=== PATIENT | male | born 1980 | race Caucasian/White ===

== ENCOUNTER 2018-05-13 04:12 | Day surgery (SDC) | payer BC, OTHER ==
[~2018-05-13] VITALS: Ht 175.3 cm; Wt 72.8 kg
[2018-05-13] VITALS (10 sets, daily range): BP systolic 113–129; BP diastolic 74–85
[2018-05-13] MEDS ORDERED: ASPIRIN 81 MG CHEW (CHILDREN'S ASA) PO ONE (04:30)
[2018-05-13 04:34] LABS: BASOPHILS % (AUTO) 1 % (0-10); EOSINOPHILS # (AUTO) 0.1 10^3/uL (0.0-0.3); EOSINOPHILS % (AUTO) 2 % (0-10); HEMATOCRIT 45 % (40-54); HEMOGLOBIN 15.7 G/DL (13.3-17.7); LYMPHOCYTES # (AUTO) 2.4 X 10^3 (1.0-4.0); LYMPHOCYTES % (AUTO) 41 % (12-44); MEAN CORPUSCULAR HEMOGLOBIN 33 PG (25-34); MEAN CORPUSCULAR HGB CONC 35 G/DL (32-36); MEAN CORPUSCULAR VOLUME 93 FL (80-99); MEAN PLATELET VOLUME 9.6 FL (7.4-10.4); MONOCYTES # (AUTO) 0.4 X 10^3 (0.0-1.0); MONOCYTES % (AUTO) 7 % (0-12); NEUTROPHILS # (AUTO) 2.9 X 10^3 (1.8-7.8); NEUTROPHILS % (AUTO) 49 % (42-75); PLATELET COUNT 210 10^3/uL (130-400); RED BLOOD COUNT 4.82 10^6/uL (4.35-5.85); RED CELL DISTRIBUTION WIDTH 12.8 % (10.0-14.5); WHITE BLOOD COUNT 5.9 10^3/uL (4.3-11.0)
[2018-05-13] MEDS ORDERED: NITROGLYCERIN 0.4 MG SL TABS BTL 25'S SL ONE ×2 (04:39→04:45)
--- NOTE | 2018-05-13 04:43 | ED Chest Pain ---
General Chief Complaint: Chest Wall/Rib Pain Stated Complaint: CP,CONVULSING Nursing Triage Note: SUBSTERNAL CP X15MIN. NO KNOWN INJURY. AWOKE FROM SLEEP WITH PAIN. Nursing Sepsis Screen: No Definite Risk Source: patient Exam Limitations: no limitations History of Present Illness Date Seen by Provider: May 13, 2018 Time Seen by Provider: 04:25 Initial Comments PT ARRIVES VIA POV STATES "PAIN SHOULDERS, CHEST' STATES PAIN BEGAN 15 MINUTES PRIOR TO ARRIVAL, WOKE HIM FROM SLEEP. STATES HE FELT FINE WHEN HE WENT TO BED RATES PAIN 10/10 NOTHING WORSENS OR IMPROVES PAIN --TOOK IBUPROFEN PRIOR TO ARRIVAL, NO RELIEF. 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 PT STATES HE DOES NOT HAVE ANY MEDICAL PROBLEMS, BUT PER MED RECONCILIATION, PT HAS FILLED RX'S FOR HYDROCODONE" 03/30/18 FOR HYDROCODONE 7.5/325 #20 BY Bella HAYWARD 12/15/17 FOR HYDROCODONE 5/325 #18 BY Bella ZARAGOZA 12/11/17 FOR HYDROCODONE 5/325 #15 BY Justine RUVALCABA Allergies and Home Medications Allergies Coded Allergies: No Known Drug Allergies (Unverified , 05/13/18) Home Medications No Active Prescriptions or Reported Meds Patient Home Medication List Home Medication List Reviewed: Yes Review of Systems Constitutional: no symptoms reported EENTM: No Symptoms Reported Respiratory: No Symptoms Reported Cardiovascular: See HPI, Chest Pain; Denies Edema, Denies Irregular Heart Rate , Denies Lightheadedness, Denies Palpitations, Denies Syncope Gastrointestinal: No Symptoms Reported Genitourinary: No Symptoms Reported Musculoskeletal: see HPI, back pain Skin: no symptoms reported Psychiatric/Neurological: No Symptoms Reported Endocrine: No Symptoms Reported Hematologic/Lymphatic: No Symptoms Reported Past Yeyvczr-Mwwevk-Phguro Hx Patient Social History Alcohol Use: Occasionally Uses Alcohol Beverage of Choice: Beer Recreational Drug Use: Yes (THC, TRIED COCAINE--NO IV USE) Smoking Status: Former Smoker (2 PPD, QUIT 2011) Type Used: Cigarettes 2nd Hand Smoke Exposure: No Recent Foreign Travel: No Contact w/Someone Who Travel: No Recent Infectious Disease Expo: No Recent Hopitalizations: No Immunizations Up To Date Tetanus Booster (TDap): Unknown Seasonal Allergies Seasonal Allergies: No Past Medical History Surgeries: Yes (RIGHT INGUINAL HERNIA, DENTAL/WISDOM TEETH) Abdominal, Gallbladder Respiratory: No Cardiac: No Neurological: No Genitourinary: No Gastrointestinal: Yes (S/P KATHARINA) Gall Bladder Disease Musculoskeletal: No Endocrine: No HEENT: No Cancer: No Psychosocial: No Integumentary: No Blood Disorders: No Physical Exam Vital Signs Vital Signs - First Documented 05/13/18 04:15 Temp 97.9 Pulse 81 Resp 18 B/P (MAP) 144/103 (117) Pulse Ox 100 O2 Delivery Room Air Capillary Refill : Less Than 3 Seconds Height, Weight, BMI Height: 5'9.00" Weight: 155lbs. oz. 70.235072dj; BMI Method:Stated General Appearance: No Apparent Distress, Anxious (SHAKING ARMS AND LEGS/HOLDS WHOLE BODY VERY TENSE. KEEPS EYES SQUEEZED TIGHT.) HEENT: PERRL/EOMI Neck: Full Range of Motion, Normal Inspection, Non Tender, Supple; No Carotid Bruit, No JVD Respiratory: Chest Non Tender, Normal Breath Sounds, No Accessory Muscle Use, No Respiratory Distress Cardiovascular: Regular Rate, Rhythm, No Edema, No JVD, No Murmur, Normal Peripheral Pulses Gastrointestinal: Normal Bowel Sounds, No Organomegaly, No Pulsatile Mass, Non Tender, Soft Extremity: Normal Capillary Refill, Normal Inspection, Normal Range of Motion, Non Tender, No Calf Tenderness, No Pedal Edema Neurologic/Psychiatric: Alert, Oriented x3, No Motor/Sensory Deficits, county manager II- XII Norm as Tested Skin: Normal Color, Warm/Dry; No Rash Progress/Results/Core Measures Results/Orders Lab Results Laboratory Tests Test 05/13/18 04:25 05/13/18 05:15 Range/Units White Blood Count 5.9 4.3-11.0 10^3/uL Red Blood Count 4.82 4.35-5.85 10^6/uL Hemoglobin 15.7 13.3-17.7 G/DL Hematocrit 45 40-54 % Mean Corpuscular Volume 93 80-99 FL Mean Corpuscular Hemoglobin 33 25-34 PG Mean Corpuscular Hemoglobin Concent 35 32-36 G/DL Red Cell Distribution Width 12.8 10.0-14.5 % Platelet Count 210 130-400 10^3/uL Mean Platelet Volume 9.6 7.4-10.4 FL Neutrophils (%) (Auto) 49 42-75 % Lymphocytes (%) (Auto) 41 12-44 % Monocytes (%) (Auto) 7 0-12 % Eosinophils (%) (Auto) 2 0-10 % Basophils (%) (Auto) 1 0-10 % Neutrophils # (Auto) 2.9 1.8-7.8 X 10^3 Lymphocytes # (Auto) 2.4 1.0-4.0 X 10^3 Monocytes # (Auto) 0.4 0.0-1.0 X 10^3 Eosinophils # (Auto) 0.1 0.0-0.3 10^3/uL Basophils # (Auto) 0.0 0.0-0.1 10^3/uL Prothrombin Time 13.1 12.2-14.7 SEC INR Comment 1.0 0.8-1.4 Activated Partial Thromboplast Time 31 24-35 SEC Sodium Level 140 135-145 MMOL/L Potassium Level 3.9 3.6-5.0 MMOL/L Chloride Level 105 98-107 MMOL/L Carbon Dioxide Level 22 21-32 MMOL/L Anion Gap 13 5-14 MMOL/L Blood Urea Nitrogen 12 7-18 MG/DL Creatinine 1.01 0.60-1.30 MG/DL Estimat Glomerular Filtration Rate > 60 BUN/Creatinine Ratio 12 Glucose Level 100 70-105 MG/DL Calcium Level 9.3 8.5-10.1 MG/DL Magnesium Level 2.5 H 1.8-2.4 MG/DL Total Bilirubin 0.8 0.1-1.0 MG/DL Aspartate Amino Transf (AST/SGOT) 18 5-34 U/L Alanine Aminotransferase (ALT/SGPT) 18 0-55 U/L Alkaline Phosphatase 73 40-136 U/L Total Creatine Kinase 75 30-200 U/L Creatine Kinase MB 1.1 <6.6 NG/ML Myoglobin 34.8 10.0-92.0 NG/ML Troponin I < 0.30 <0.30 NG/ML B-Type Natriuretic Peptide 22.8 <100.0 PG/ML Total Protein 7.7 6.4-8.2 GM/DL Albumin 4.9 H 3.2-4.5 GM/DL Amylase Level 58 25-125 U/L Lipase 32 8-78 U/L Serum Alcohol < 10 <10 MG/DL Urine Color YELLOW Urine Clarity CLEAR Urine pH 6 5-9 Urine Specific [place] 1.010 L 1.016-1.022 Urine Protein NEGATIVE NEGATIVE Urine Glucose (UA) NEGATIVE NEGATIVE Urine Ketones NEGATIVE NEGATIVE Urine Nitrite NEGATIVE NEGATIVE Urine Bilirubin NEGATIVE NEGATIVE Urine Urobilinogen NORMAL NORMAL MG/DL Urine Leukocyte Esterase NEGATIVE NEGATIVE Urine RBC (Auto) NEGATIVE NEGATIVE Urine RBC 0 /HPF Urine WBC 0 /HPF Urine Squamous Epithelial Cells 0-2 /HPF Urine Crystals NONE /LPF Urine Bacteria 0 /HPF Urine Casts NONE /LPF Urine Mucus NEGATIVE /LPF Urine Culture Indicated NO Urine Opiates Screen NEGATIVE NEGATIVE Urine Oxycodone Screen NEGATIVE NEGATIVE Urine Methadone Screen NEGATIVE NEGATIVE Urine Propoxyphene Screen NEGATIVE NEGATIVE Urine Barbiturates Screen NEGATIVE NEGATIVE Ur Tricyclic Antidepressants Screen NEGATIVE NEGATIVE Urine Phencyclidine Screen NEGATIVE NEGATIVE Urine Amphetamines Screen NEGATIVE NEGATIVE Urine Methamphetamines Screen NEGATIVE NEGATIVE Urine Benzodiazepines Screen NEGATIVE NEGATIVE Urine Cocaine Screen NEGATIVE NEGATIVE Urine Cannabinoids Screen NEGATIVE NEGATIVE My Orders Orders - VERNON JARUEGUI DO Cbc With Automated Diff (05/13/18 04:26) Magnesium (05/13/18 04:26) Chest 1 View, Ap/Pa Only (05/13/18 04:26) Ekg Tracing (05/13/18 04:26) Cardiac Profile 1 (05/13/18 04:26) Comprehensive Metabolic Panel (05/13/18 04:26) Myoglobin Serum (05/13/18 04:26) Protime With Inr (05/13/18 04:26) Partial Thromboplastin Time (05/13/18 04:26) O2 (05/13/18 04:26) Monitor-Rhythm Ecg Trace Only (05/13/18 04:26) Lipid Panel (05/14/18 06:00) Aspirin Chewable Tablet (Baby Aspirin Ch (05/13/18 04:30) Saline Lock/Iv-Start (05/13/18 04:26) Creatine Kinase (05/13/18 04:26) Creatine Kinase Mb (05/13/18 04:26) Lipase (8/5/18 04:26) Amylase (05/13/18 04:26) BNP (05/13/18 04:26) Alcohol (05/13/18 04:26) Drug Screen Stat (Urine) (05/13/18 04:26) Ua Culture If Indicated (05/13/18 04:26) Nitroglycerin 0.4 Mg Btl 25's (Nitrostat (05/13/18 04:45) Nitroglycerin 0.4 Mg Btl 25's (Nitrostat (05/13/18 04:39) Ketorolac Injection (Toradol Injection) (05/13/18 05:00) Ct Angio Chest W (05/13/18 05:03) Iohexol Injection (Omnipaque 350 Mg/Ml 1 (05/13/18 06:00) Ns (Ivpb) (Sodium Chloride 0.9%) (05/13/18 06:00) Medications Given in ED Current Medications Medications Dose Ordered Sig/Grisel Route Start Time Stop Time Status Last Admin Dose Admin Aspirin 324 mg ONCE ONCE PO 05/13/18 04:30 05/13/18 04:31 DC 05/13/18 04:32 324 MG Iohexol 150 ml ONCE ONCE IV 05/13/18 06:00 05/13/18 06:01 DC 05/13/18 06:03 125 ML Ketorolac Tromethamine 30 mg ONCE ONCE IVP 05/13/18 05:00 05/13/18 05:01 DC 05/13/18 04:59 30 MG Nitroglycerin 1 BOTTLE ONCE ONCE SL 05/13/18 04:45 05/13/18 04:46 DC 05/13/18 04:42 0.4 MG Sodium Chloride 250 ml ONCE ONCE IV 05/13/18 06:00 05/13/18 06:01 DC 05/13/18 06:03 80 ML Vital Signs/I&O 05/13/18 05/13/18 04:15 04:25 Temp 97.9 Pulse 81 Resp 18 B/P (MAP) 144/103 (117) Pulse Ox 100 100 O2 Delivery Room Air Room Air Blood Pressure Mean: 117 Progress Progress Note : Progress Note NO RELIEF WITH NTG X 3 MINIMAL, BRIEF IMPROVEMENT WITH TORADOL, THEN PAIN GRADUALLY DECREASE TO 4-5/10 PT NO LONGER STIFFENING HIS ARMS AND LEGS OR SQUEEZING HIS EYES TIGHT. PT APPEARS CALMER AND DOES NOT APPEAR TO BE IN ANY DISCOMFORT, RESTING QUIETLY FOR REMAINDER OF ER STAY Initial ECG Impression Date: May 13, 2018 Initial ECG Impression Time: 04:21 Initial ECG Rate: 74 Initial ECG Rhythm: Normal Sinus Initial ECG Comparisson: No Previous ECG Available Diagnostic Imaging Comments CXR--NO ACUTE PROCESS, PENDING RADIOLOGIST REVIEW CT CHEST ANGIOGRAM--NO P.E. OR ACUTE PROCESS, PER RADIOLOGIST REPORT @ 0623 Reviewed: Reviewed by Me Departure Impression Primary Impression: Chest pain Disposition: ADMITTED INPATIENT Condition: Improved Admissions Decision to Admit Reason: Admit from ER (General) Decision to Admit/Date: May 13, 2018 Time/Decision to Admit Time: 06:25 Departure-Patient Inst. Referrals: NO,LOCAL PHYSICIAN (PCP/Family) Primary Care Physician Scripts No Active Prescriptions or Reported Meds VERNON JAUREGUI DO May 13, 2018 04:43
[2018-05-13 04:46] LABS: PROTHROMBIN TIME PATIENT 13.1 SEC (12.2-14.7)
[2018-05-13 04:56] LABS: ALANINE AMINOTRANSFERASE 18 U/L (0-55); ALBUMIN 4.9 GM/DL (3.2-4.5); ALKALINE PHOSPHATASE 73 U/L (40-136); AMYLASE 58 U/L (25-125); BILIRUBIN,TOTAL 0.8 MG/DL (0.1-1.0); BUN/CREATININE RATIO 12; CALCIUM 9.3 MG/DL (8.5-10.1); CARBON DIOXIDE 22 MMOL/L (21-32); CHLORIDE 105 MMOL/L (98-107); CREATINE KINASE 75 U/L (30-200); CREATININE SERUM 1.01 MG/DL (0.60-1.30); GFR ESTIMATED > 60; GLUCOSE 100 MG/DL (70-105); LIPASE 32 U/L (8-78); MAGNESIUM 2.5 MG/DL (1.8-2.4); POTASSIUM 3.9 MMOL/L (3.6-5.0); SODIUM 140 MMOL/L (135-145); TOTAL PROTEIN 7.7 GM/DL (6.4-8.2)
[2018-05-13] MEDS ORDERED: KETOROLAC 30 MG/ML VIAL IVP ONE (05:00)
[2018-05-13 05:03] LABS: CREATINE KINASE MB 1.1 NG/ML (<6.6); MYOGLOBIN SERUM 34.8 NG/ML (10.0-92.0)
[2018-05-13 05:21] LABS: BILIRUBIN,URINE NEGATIVE (NEGATIVE); CLARITY,URINE CLEAR; COLOR,URINE YELLOW; GLUCOSE, URINE (UA) NEGATIVE (NEGATIVE); KETONES,URINE NEGATIVE (NEGATIVE); LEUKOCYTE ESTERASE ,URINE NEGATIVE (NEGATIVE); NITRITE,URINE NEGATIVE (NEGATIVE); PH,URINE 6 (5-9); PROTEIN,URINE NEGATIVE (NEGATIVE); UROBILINOGEN,URINE NORMAL (NORMAL)
[2018-05-13 05:29] LABS: BACTERIA,URINE 0 /HPF; RBC,URINE 0 /HPF; SQUAMOUS EPITHELIAL CELL,UR 0-2 /HPF; WBC,URINE 0 /HPF
[2018-05-13 05:33] LABS: AMPHETAMINE SCREEN, URINE NEGATIVE (NEGATIVE); BARBITURATE SCREEN URINE NEGATIVE (NEGATIVE); BENZODIAZEPINES SCREEN URINE NEGATIVE (NEGATIVE); CANNABINOID SCREEN, URINE NEGATIVE (NEGATIVE); COCAINE SCREEN URINE NEGATIVE (NEGATIVE); METHADONE STAT NEGATIVE (NEGATIVE); METHAMPHETAMINE SCREEN URINE S NEGATIVE (NEGATIVE); OPIATE SCREEN URINE NEGATIVE (NEGATIVE); OXYCODONE STAT NEGATIVE (NEGATIVE); PROPOXYPHENE STAT NEGATIVE (NEGATIVE); TRICYCLIC ANTIDEPRESSANTS SCRE NEGATIVE (NEGATIVE)
[2018-05-13] MEDS ORDERED: IOHEXOL 350 MG/ML 150 ML (OMNIPAQUE 350) VIAL IV ONE (06:00)
[2018-05-13] MEDS ORDERED: NS 250 ML (IVPB) BAG IV ONE (06:00)
--- NOTE | 2018-05-13 06:14 | Diagnostic Imaging Report ---
PROCEDURE: CT angiography of the chest with contrast. TECHNIQUE: Multiple contiguous axial images were obtained through the chest after uneventful bolus administration of intravenous contrast. Reconstructed CTA MIP acquisitions were also performed. INDICATION: Chest pain COMPARISON: None available. FINDINGS: Vasculature: No pulmonary emboli. No CT evidence of pulmonary hypertension or right ventricular strain. Thoracic aorta is normal in caliber. No aortic dissection or pseudoaneurysm. Heart and mediastinum: Visualized thyroid is normal. No supraclavicular, axillary, or intra-thoracic lymphadenopathy. The heart is normal in size without pericardial effusion. Pleura: No pleural effusion or pneumothorax. Lungs and airway: No endoluminal lesion in the trachea or central bronchi. No pulmonary mass, nodule or consolidation. Upper abdomen: Allowing for the phase of contrast, no acute abnormality in the upper abdomen is seen. Musculoskeletal: No concerning osseous lesion. IMPRESSION: 1. No acute cardiopulmonary process. Specifically, no pulmonary emboli or acute aortic syndrome. Dictated by: Dictated on workstation # [id number]
--- NOTE | 2018-05-13 06:25 | Diagnostic Imaging Report ---
CHEST 1 VIEW, AP/PA ONLY Indication: Chest pain Comparison: None available. Findings: No focal airspace disease in the visualized lungs. Please note that the posterior lower lobes are poorly evaluated by portable radiography. No pleural effusion or pneumothorax. Normal cardiomediastinal silhouette. Impression: No acute cardiopulmonary process by portable radiography. Dictated by: Dictated on workstation # [id number]
[2018-05-13] MEDS ORDERED: CATHETER FLUSH 10 ML SYR IV PRN (07:45)
[2018-05-13] MEDS ORDERED: NITROGLYCERIN 0.4 MG SL TABS BTL 25'S SL PRN (09:00)
--- NOTE | 2018-05-13 10:40 | History & Physical-Hospitalist ---
History of Present Illness HPI/Chief Complaint The patient is a 37-year-old male who presented to the emergency room with complaints of central chest pain which awakened him from sleep. He has not had any previous incidence of such. He does not smoke, is not diabetic, is not hypertensive, does not know what his cholesterol reading would be. There was no radiation of the pain. He is in the area for job-related purposes. 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 He is based in [facility] and drove from [place] to [facility] and then to [place] yesterday. He will be here for most of the week doing a project. He has a fit appearance although he does not exercise regularly Source: patient Exam Limitations: no limitations Date Seen 05/13/18 Time Seen by Provider: 10:35 Attending Physician Bart Moreira MD PCP No,Local Physician Referring Physician Date of Admission May 13, 2018 at 06:25 Home Medications & Allergies Home Medications Reviewed patient Home Medication Reconciliation performed by pharmacy medication reconciliations highway maintenance technician and/or nursing. Patients Allergies have been reviewed. Allergies Allergies Coded Allergies No Known Drug Allergies (Unverified05/13/18) Past Gfrxkav-Eiotxd-Moabjb Hx Past Med/Social Hx: Reviewed Nursing Past Med/Soc Hx Patient Social History Alcohol Use: Occasionally Uses Number of Drinks Today: AA Alcohol Beverage of Choice: Beer Recreational Drug Use: Yes (THC, TRIED COCAINE--NO IV USE) Smoking Status: Never a Smoker Type Used: Cigarettes 2nd Hand Smoke Exposure: No Physical Abuse Screen: No Sexual Abuse: No Recent Foreign Travel: No Contact w/other who traveled: No Recent Hopitalizations: No Recent Infectious Disease Expo: No Immunizations Up To Date Tetanus Booster (TDap): Unknown Pediatric: No Seasonal Allergies Seasonal Allergies: No Past Medical History Surgeries: Abdominal, Gallbladder Currently Using CPAP: No Currently Using BIPAP: No Gastrointestinal: Gall Bladder Disease Are Your Blood Sugars Over 250: No History of Blood Disorders: No Review of Systems Constitutional: see HPI EENTM: no symptoms reported Respiratory: no symptoms reported Cardiovascular: see HPI, chest pain Gastrointestinal: no symptoms reported Genitourinary: no symptoms reported Musculoskeletal: no symptoms reported Skin: no symptoms reported Psychiatric/Neurological: No Symptoms Reported Physical Exam Physical Exam Vital Signs Vital Signs - First Documented 05/13/18 04:15 Temp 97.9 Pulse 81 Resp 18 B/P (MAP) 144/103 (117) Pulse Ox 100 O2 Delivery Room Air Capillary Refill : Less Than 3 Seconds Height, Weight, BMI Height: 5'9.00" Weight: 160lbs. 9.0oz. 72.573292qg; 23.7 BMI Method:Stated General Appearance: No Apparent Distress, WD/WN, Other (sleeping when I entered the room) Eyes: Bilateral Eye Normal Inspection HEENT: Normal ENT Inspection Neck: Normal Inspection Respiratory: Chest Non Tender, Lungs Clear, Normal Breath Sounds, No Accessory Muscle Use, No Respiratory Distress Cardiovascular: Regular Rate, Rhythm Back: Normal Inspection Extremity: Normal Capillary Refill, Normal Inspection, Normal Range of Motion, Non Tender, No Calf Tenderness, No Pedal Edema Neurologic/Psychiatric: Alert, Oriented x3, No Motor/Sensory Deficits, Normal Mood/Affect Skin: Normal Color, Warm/Dry Lymphatic: No Adenopathy Results Results/Procedures Labs Laboratory Tests 05/13/18 04:25 Patient resulted labs reviewed. Assessment/Plan Admission Diagnosis Chest pain not myocardial Admission Status: Observation Assessment and Plan Repeat troponin and cardiology consult Clinical Quality Measures DVT/VTE Risk/Contraindication: RFS Level Per Nursing on Admit: 0=No Risk/No VTE PPX BART MOREIRA MD May 13, 2018 10:40
[2018-05-13] MEDS ORDERED: NS IV 1000 ML 1,000 ML ONE (11:20)
[2018-05-13] MEDS ORDERED: LIDOCAINE 1% INJ 20 ML 20 ML VIAL ONE (11:20)
[2018-05-13] MEDS ORDERED: HEParin (CATH LAB) 2,000 ML IV ONE (11:21)
[2018-05-13] MEDS ORDERED: fentaNYL INJECTION 100 MCG/2 ML AMP ONE (11:27)
[2018-05-13] MEDS ORDERED: MIDAZOLAM 5 MG/5 ML (VERSED) VIAL ONE (11:28)
--- NOTE | 2018-05-13 11:31 | Consultation-Cardiology ---
HPI-Cardiology Cardiology Consultation Date of Consultation 05/13/18 Date of Admission Time Seen by Provider: 11:26 Indication: Chest pain HPI 37 years old gentleman with no significant past medical history, woke up around 3 a.m. with severe chest pain all over his chest radiating to both shoulder and both arms with tightness. Came into the emergency room and reported some improvement with nitroglycerin. Continue to have some discomfort, EKG showed subtle abnormality. Cardiac enzymes were negative. Started having another episode of chest pain woke him up from sleep. Currently having active chest discomfort, subtle EKG changes with slurring this of the ST segment diffusely. Nitroglycerin did not improve the pain, patient was noted to have elevated troponin level. He has strong family history of heart disease. Denied smoking , alcohol or illicit drug use. Home Medications & Allergies Allergies: Coded Allergies: No Known Drug Allergies (Unverified , 05/13/18) Home Medication List Reviewed: Yes Does not take any medication SHQ-Bmnhhd-Uzqydr Hx Patient Social History Marital Status: Employed/Student: employed Alcohol Use: Occasionally Uses Recreational Drug Use: Yes (THC, TRIED COCAINE--NO IV USE) Smoking Status: Never a Smoker Type Used: Cigarettes 2nd Hand Smoke Exposure: No Recent Foreign Travel: No Recent Infectious Disease Expo: No Recent Hopitalizations: No Physical Abuse Screen: No Sexual Abuse: No Immunizations Up To Date Tetanus Booster (TDap): Unknown Past Medical History Cholecystectomy otherwise no past medical history Family Medical History Family Medical Hx Strong family history of heart disease with multiple family member who had heart attack, stents and bypass Constitutional: no symptoms reported, see HPI EENTM: see HPI, no symptoms reported Respiratory: no symptoms reported, see HPI; No cough, No dyspnea on exertion, No hemoptysis, No orthopnea, No phlegm, No short of breath, No stridor, No wheezing, No other Cardiovascular: see HPI, chest pain; No edema, No Hx of Intervention, No palpitations, No syncope, No vascular heart diseas, No other Gastrointestinal: no symptoms reported, see HPI Genitourinary: no symptoms reported, see HPI Musculoskeletal: no symptoms reported, see HPI Skin: no symptoms reported, see HPI Psychiatric/Neurological: No Symptoms Reported, See HPI Reviewed Test Results Reviewed Test Results Lab Laboratory Tests Test 05/13/18 04:25 05/13/18 05:15 05/13/18 10:35 Range/Units White Blood Count 5.9 4.3-11.0 10^3/uL Red Blood Count 4.82 4.35-5.85 10^6/uL Hemoglobin 15.7 13.3-17.7 G/DL Hematocrit 45 40-54 % Mean Corpuscular Volume 93 80-99 FL Mean Corpuscular Hemoglobin 33 25-34 PG Mean Corpuscular Hemoglobin Concent 35 32-36 G/DL Red Cell Distribution Width 12.8 10.0-14.5 % Platelet Count 210 130-400 10^3/uL Mean Platelet Volume 9.6 7.4-10.4 FL Neutrophils (%) (Auto) 49 42-75 % Lymphocytes (%) (Auto) 41 12-44 % Monocytes (%) (Auto) 7 0-12 % Eosinophils (%) (Auto) 2 0-10 % Basophils (%) (Auto) 1 0-10 % Neutrophils # (Auto) 2.9 1.8-7.8 X 10^3 Lymphocytes # (Auto) 2.4 1.0-4.0 X 10^3 Monocytes # (Auto) 0.4 0.0-1.0 X 10^3 Eosinophils # (Auto) 0.1 0.0-0.3 10^3/uL Basophils # (Auto) 0.0 0.0-0.1 10^3/uL Prothrombin Time 13.1 12.2-14.7 SEC INR Comment 1.0 0.8-1.4 Activated Partial Thromboplast Time 31 24-35 SEC Sodium Level 140 135-145 MMOL/L Potassium Level 3.9 3.6-5.0 MMOL/L Chloride Level 105 98-107 MMOL/L Carbon Dioxide Level 22 21-32 MMOL/L Anion Gap 13 5-14 MMOL/L Blood Urea Nitrogen 12 7-18 MG/DL Creatinine 1.01 0.60-1.30 MG/DL Estimat Glomerular Filtration Rate > 60 BUN/Creatinine Ratio 12 Glucose Level 100 70-105 MG/DL Calcium Level 9.3 8.5-10.1 MG/DL Magnesium Level 2.5 H 1.8-2.4 MG/DL Total Bilirubin 0.8 0.1-1.0 MG/DL Aspartate Amino Transf (AST/SGOT) 18 5-34 U/L Alanine Aminotransferase (ALT/SGPT) 18 0-55 U/L Alkaline Phosphatase 73 40-136 U/L Total Creatine Kinase 75 30-200 U/L Creatine Kinase MB 1.1 <6.6 NG/ML Myoglobin 34.8 10.0-92.0 NG/ML Troponin I < 0.30 1.37 *H <0.30 NG/ML B-Type Natriuretic Peptide 22.8 <100.0 PG/ML Total Protein 7.7 6.4-8.2 GM/DL Albumin 4.9 H 3.2-4.5 GM/DL Amylase Level 58 25-125 U/L Lipase 32 8-78 U/L Serum Alcohol < 10 <10 MG/DL Urine Color YELLOW Urine Clarity CLEAR Urine pH 6 5-9 Urine Specific [place] 1.010 L 1.016-1.022 Urine Protein NEGATIVE NEGATIVE Urine Glucose (UA) NEGATIVE NEGATIVE Urine Ketones NEGATIVE NEGATIVE Urine Nitrite NEGATIVE NEGATIVE Urine Bilirubin NEGATIVE NEGATIVE Urine Urobilinogen NORMAL NORMAL MG/DL Urine Leukocyte Esterase NEGATIVE NEGATIVE Urine RBC (Auto) NEGATIVE NEGATIVE Urine RBC 0 /HPF Urine WBC 0 /HPF Urine Squamous Epithelial Cells 0-2 /HPF Urine Crystals NONE /LPF Urine Bacteria 0 /HPF Urine Casts NONE /LPF Urine Mucus NEGATIVE /LPF Urine Culture Indicated NO Urine Opiates Screen NEGATIVE NEGATIVE Urine Oxycodone Screen NEGATIVE NEGATIVE Urine Methadone Screen NEGATIVE NEGATIVE Urine Propoxyphene Screen NEGATIVE NEGATIVE Urine Barbiturates Screen NEGATIVE NEGATIVE Ur Tricyclic Antidepressants Screen NEGATIVE NEGATIVE Urine Phencyclidine Screen NEGATIVE NEGATIVE Urine Amphetamines Screen NEGATIVE NEGATIVE Urine Methamphetamines Screen NEGATIVE NEGATIVE Urine Benzodiazepines Screen NEGATIVE NEGATIVE Urine Cocaine Screen NEGATIVE NEGATIVE Urine Cannabinoids Screen NEGATIVE NEGATIVE Physical Exam Vital Signs Vital Signs - First Documented 05/13/18 04:15 Temp 97.9 Pulse 81 Resp 18 B/P (MAP) 144/103 (117) Pulse Ox 100 O2 Delivery Room Air Capillary Refill : Less Than 3 Seconds Height, Weight, BMI Height: 5'9.00" Weight: 160lbs. 9.0oz. 72.834037dh; 23.7 BMI Method:Stated General Appearance: No Apparent Distress, WD/WN Eyes: Bilateral Eye Normal Inspection, Bilateral Eye PERRL, Bilateral Eye EOMI HEENT: PERRL/EOMI, TMs Normal, Normal ENT Inspection, Pharynx Normal Neck: Full Range of Motion, Normal Inspection, Non Tender, Supple, Carotid Bruit Respiratory: Chest Non Tender, Lungs Clear, Normal Breath Sounds, No Accessory Muscle Use, No Respiratory Distress Cardiovascular: Regular Rate, Rhythm, No Edema, No Gallop, No JVD, No Murmur, Normal Peripheral Pulses Gastrointestinal: Normal Bowel Sounds, No Organomegaly, No Pulsatile Mass, Non Tender, Soft Back: Normal Inspection, No CVA Tenderness, No Vertebral Tenderness Extremity: Normal Capillary Refill, Normal Inspection, Normal Range of Motion, Non Tender, No Calf Tenderness, No Pedal Edema Neurologic/Psychiatric: Alert, Oriented x3, No Motor/Sensory Deficits, Normal Mood/Affect Skin: Normal Color, Warm/Dry Lymphatic: No Adenopathy A/P-Cardiology Admission Diagnosis Chest pain Coronary artery disease Hypertension Family history of heart disease Assessment/Plan Chest pain, active chest pain with EKG changes, elevated troponin level, non-ST elevation myocardial infarction, planning to proceed with emergency cardiac catheterization possible PTCA and Coronary artery disease, planning to proceed with cardiac catheterization Hypertension, blood pressure is currently controlled, does not take any medication at home, continue to monitor blood pressure Questionable hyperlipidemia I will evaluate lipid profile Strong family history of heart disease Clinical Quality Measures DVT/VTE Risk/Contraindication: RFS Level Per Nursing on Admit: 0=No Risk/No VTE PPX YARELIS POWERS MD May 13, 2018 11:31 am
--- NOTE | 2018-05-13 11:34 | Cardiac Procedure Note-CS/ASA ---
Pre-Procedure Note Pre-Op Procedure Note H&P Reviewed The H&P was reviewed, patient examined and no changes noted. Date H&P Reviewed: May 13, 2018 Time H&P Reviewed: 11:34 Conscious Sedation Pre-Proced Time Reviewed: 11:34 ASA Class: 3 Airway Mallampati Classification: (salamatof appropriate class) I. II. III, IV Lungs Heart ASA score ASA 1: a normal healthy patient ASA 2: a patient with a mild systemic disease (mid diabetes, controlled hypertension, obesity x ASA 3: a patient with a severe systemic disease that limits activity (angina , COPD, prior Myocardial infarction) ASA 4: a patient with an incapacitating disease that is a constant threat to life (CHF, renal failure) ASA 5: a moribund patient not expected to survive 24 hrs. (ruptured aneurysm) ASA 6: a declared brain patient whose organs are being harvested. For emergent operations, add the letter E after the classification Grade 3 Sedation Plan: Analgesia, Amnesia, Plan communicated to team members, Discussed options with patient/fam, Discussed risks with patient/fam Note The patient is an appropriate candidate to undergo the planned procedure, sedation, and anesthesia. The patient immediately re-assessed prior to indication. YARELIS POWERS MD May 13, 2018 11:34 am
[2018-05-13] MEDS ORDERED: NS IV 1000 ML 1,000 ML IV SCH ×2 (11:45→12:12)
[2018-05-13] MEDS ORDERED: PATIENT MAY USE OWN MEDS, ALL PO SCH (12:15)
--- NOTE | 2018-05-13 12:17 | Cardiac Cath Report ---
Cardiac Cath Report Physician (s)/[facility] Center Administrator (s) Physician YARELIS POWERS MD Pre-Procedure Diagnosis Pre-Procedure Diagnosis: Chest pain, elevated cardiac enzymes Post-Procedure Note Procedure Start Date: May 13, 2018 Name of Procedure: Left heart catheterization Findings/Procedure Note PROCEDURE NOTE: After explaining the procedure to the patient, all pros and cons were explained , all questions were answered. The patient signed the consent and then he was placed on the cardiac catheterization laboratory. Groin was prepped SL fashion local anesthesia was used. Sheath placed in the right femoral artery. Toby right and left catheter were used to access the coronary system. Pigtail was used to access the left ventricular cavity. Left ventriculogram was done At the end of the procedure the sheath was removed. Manual pressure applied FINDINGS: Hemodynamics LV 103/20, end-diastolic pressure of 20 Aorta 117/75 mean of 89 ANATOMY: Left Main is free of obstructive disease Left Anterior Descending has mild disease nonobstructive disease Left Circumflex has mild disease nonobstructive disease Right Coronory Artery has mild disease nonobstructive disease LV Gram is normal in size with normal contractility estimated ejection fraction 55 percent CONCLUSION: 1. Mild coronary artery disease nonobstructive disease 2. Normal left ventricular size and systolic function, estimated ejection fraction 55 percent, elevated left ventricular end-diastolic pressure DISCUSSION AND RECOMMENDATION: I will sedimentation rate and BNP. Anesthesia Type: Conscious Sedation Estimated blood loss (mL): 10 ml Contrast Amount: 50 ml Total Radiation Dose: 683 mGy Post-Procedure Diagnosis Post-operative diagnosis: Chest pain nonspecific etiology Coronary artery disease Family history of heart disease YARELIS POWERS MD May 13, 2018 12:17
[2018-05-13 12:42] LABS: CHOLESTEROL 134 MG/DL (< 200); HDL CHOLESTEROL 28 MG/DL (40-60); TRIGLYCERIDES 130 MG/DL (<150); VLDL CHOLESTEROL 26 MG/DL (5-40)
[2018-05-13] MEDS ORDERED: PANTOPRAZOLE 40 MG (PROTONIX) TAB PO NR (13:15)
[2018-05-13] MEDS ORDERED: PANT40TA3 PO (13:42)
[2018-05-13] MEDS ORDERED: ASPI-983 PO (13:42)
--- NOTE | 2018-05-13 13:43 | Discharge Inst-Post CATH ---
Discharge Inst-CATH Post Cardiac Cath D/C Inst CARDIAC CATH DISCHARGE INSTRUCTIONS *Hold Metformin for 48 hours post heart cath. ACTIVITY * Go Home directly and rest. * Limit activity of the leg (or wrist if it was used) for 7 days including aerobics, swimming, jogging, bicycling, etc. * Restrict stair-climbing for 7 days if possible, if not, climb up with your non -cath leg, then bring together on the same step. * Avoid lifting, pushing, pulling or excessive movement of the affected extremity for 7 days. * Customary sexual activity may be resumed after 2 days-use caution not to use a position that strains or causes pain to the affected extremity. * No driving for 24 hours. * NO SMOKING. * Avoid straining for bowel movements for 7 days. * Gentle walking on level ground is allowed. * Returning to work will depend on the type of procedure and the results. Your doctor will discuss this with you. CALL YOUR DOCTOR FOR ANY OF THE FOLLOWING: *If bleeding from the puncture site occurs- Apply gentle pressure to site with clean cloth and call your doctor or EMS. * If a knot or lump forms under the skin, increases in size, or causes pain. * If bruising appears to be worsening or moving further down your leg instead of disappearing. * Temperature above 101 F. CARE OF YOUR GROIN INCISION; * Bruising or purple discoloration of the skin near the puncture site is common. * You may shower only, no bathtub bathing for 5 days. Be careful to avoid slipping as your leg may feel stiff. * If a closure device was used on your femoral artery, please see the attached guide regarding care of the device and your leg. * REMOVE the dressing from your groin the next day after your procedure in the shower. CARE OF YOUR WRIST INCISION; * Bruising or purple discoloration of the skin near the puncture site is common. * You may shower. * DO NOT submerge wrist. * Remove dressing in 24 hours. YARELIS POWERS MD May 13, 2018 13:43
[2018-05-13] MEDS ORDERED: CATHETER FLUSH 10 ML SYR IV SCH (14:00)
[2018-05-14] MEDS ORDERED: PANTOPRAZOLE 40 MG (PROTONIX) TAB PO SCH (07:00)
[2018-05-14] MEDS ORDERED: ASPIRIN E.C. 81 MG (ECOTRIN) TAB PO SCH (09:00)
== END 2018-05-13 17:30 | disposition home or self-care (01) ==
LOC: ER 04:16 → UNDOADMOB 06:25 → 4TH 06:25 → CATH 07:20 → UNDODISOB 17:30
PROVIDERS: ATTEND Internal Medicine
DX: R07.89 Other chest pain (principal); I25.10 Atherosclerotic heart disease of native coronary artery without angina pectoris; I10 Essential (primary) hypertension; Z82.49 Family history of ischemic heart disease and other diseases of the circulatory system; Z87.891 Personal history of nicotine dependence
CPT/HCPCS: 36415; 71045; 71275; 80053; 80061; 80306; 80320; 81000; 82150; 82550; 82553; 83690; 83735; 83874; 83880; 84484; 85025; 85610; 85652; 85730; 93005; 93041; 93458; 96374